=== PATIENT | female | born 1990 | race Caucasian/White ===

== ENCOUNTER 2017-09-16 15:02 | Emergency (ER) | payer SELFPAY ==
[2017-09-16 15:14] VITALS: BP 122/84
[2017-09-16 15:50] LABS: Bilirubin,Urine NEG (Negative); Blood,Urine NEG (Negative); Color,Urine Yellow (Yellow); Protein,Urine <15 mg/dL mg/dL (Negative); Urobilinogen,Urine < 2.0 mg/dL (<2.0)
[2017-09-16 15:52] LABS: HCG Qualitative,Urine Negative (Negative)
== END 2017-09-16 20:36 | disposition left against medical advice (07) ==
LOC: ED 15:02
DX: R10.2 Pelvic and perineal pain (principal); Z53.21 Procedure and treatment not carried out due to patient leaving prior to being seen by health care provider
CPT/HCPCS: 81001; 81025